=== PATIENT | male | born 1965 | race Caucasian/White ===

== ENCOUNTER 2020-11-19 08:58 | Emergency (ER) | payer MEDICARE, MEDICAID ==
[~2020-11-19] VITALS: Ht 170.2 cm; Wt 95.5 kg
[~2020-11-19 08:58] MED LIST: METH-603 PO; MYCOL15CR TP; NOR5T PO; ZINO TP
[2020-11-19 09:06] VITALS: BP 102/69
[2020-11-19] MEDS ORDERED: DEXAMETHASONE 6 MG TABLET PO ONE ×2 (09:20→11:45)
[2020-11-19 10:45] LABS: C-REACTIVE PROTEIN 2.54 MG/DL (0.0-0.5)
[2020-11-19] MEDS ORDERED: DEXA6TAB6 PO (11:03)
[2020-11-19] MEDS ORDERED: DEXAMETHASONE 6 MG TABLET PO SCH (11:45)
== END 2020-11-19 11:48 | disposition home or self-care (01) ==
LOC: ER 08:58
DX: U07.1 COVID-19 (principal); R06.02 Shortness of breath; E78.00 Pure hypercholesterolemia, unspecified; I10 Essential (primary) hypertension; K21.9 Gastro-esophageal reflux disease without esophagitis; F17.210 Nicotine dependence, cigarettes, uncomplicated; E11.9 Type 2 diabetes mellitus without complications; F12.90 Cannabis use, unspecified, uncomplicated; G89.29 Other chronic pain; Z72.89 Other problems related to lifestyle; Z88.5 Allergy status to narcotic agent; Z79.899 Other long term (current) drug therapy
CPT/HCPCS: 36415; 71045; 82728; 83615; 84145; 85379; 85384; 86140; 99284; J8540

== ENCOUNTER 2022-07-20 05:07 | Emergency (ER) | payer MEDICARE, MEDICAID ==
[~2022-07-20] VITALS: Ht 172.7 cm; Wt 104.5 kg
[~2022-07-20 05:07] MED LIST changes: +DEXA6TAB6 PO; -MYCOL15CR TP; +NYST15CR37 TP
[2022-07-20] MEDS ORDERED: DOXY-411 PO (06:01)
[2022-07-20] MEDS ORDERED: PRED20TA PO (06:01)
[2022-07-20] MEDS ORDERED: DOXYCYCLINE 100MG CAPSULE PO STA (06:02)
[2022-07-20] MEDS ORDERED: triamcinolone acetonide 40mg/ml inj IM ONE (06:05)
[2022-07-20 06:15] VITALS: BP 136/105
== END 2022-07-20 06:17 | disposition home or self-care (01) ==
LOC: ER 05:07
DX: L25.9 Unspecified contact dermatitis, unspecified cause (principal)
CPT/HCPCS: 96372; 99283; J3301

== ENCOUNTER 2024-01-16 19:30 | Emergency (ER) | payer MEDICARE, MEDICAID ==
[~2024-01-16] VITALS: Ht 177.8 cm; Wt 106.8 kg
[2024-01-16 19:32] VITALS: BP 148/98; PULSE 85; RESP 17; O2SAT 99
[2024-01-16] MEDS ORDERED: LIDO700A32 TOP (21:59)
[2024-01-16 22:13] VITALS: TEMP 98.7
[2024-01-16] MEDS: LIDOcaine 5% patch TP STA (22:13)
== END 2024-01-16 22:16 | disposition home or self-care (01) ==
LOC: ER 19:31
DX: S20.212A Contusion of left front wall of thorax, initial encounter (principal); K21.9 Gastro-esophageal reflux disease without esophagitis; J44.9 Chronic obstructive pulmonary disease, unspecified; I10 Essential (primary) hypertension; G89.29 Other chronic pain; E78.00 Pure hypercholesterolemia, unspecified; Z88.5 Allergy status to narcotic agent; X58.XXXA Exposure to other specified factors, initial encounter; Y93.89 Activity, other specified; Y92.89 Other specified places as the place of occurrence of the external cause; Y99.8 Other external cause status
CPT/HCPCS: 71111; 99283